=== PATIENT | male | born 1965 | race Caucasian/White ===

== ENCOUNTER 2016-04-26 11:29 | Emergency (ER) | payer SELFPAY ==
--- NOTE | 2016-04-26 11:39 | ED Physician Documentation ---
Low Back Pain - HISTORIAN Historian: patient - HPI Chief Complaint: Low Back Pain/ Injury History: history of chronic pain:, back pain Onset: other (February 2016) Duration: continues in ED Recent Injury: No Context: lifting Where: home Severity: moderate Worsened By:: movement to LT flexion. denies: movement to RT flexion Relieved By: nothing Further Comments: yes (50 year old male patient presents with low back pain radiating down left leg. Patient states he was seen in February for similar complaints, states he does not want the same medications.) - ROS CONST: no problems CVS/RESP: none EYES/ENT: none MS/SKIN/LYMPH: none Neuro/Psych: none GI/: denies: abdominal pain, black stools - PAST HX Past History: back pain Surgeries/Procedures: none Immunizations: UTD Allergies/Adverse Reactions: Allergies Allergy/AdvReac Type Severity Reaction Status Date / Time No Known Drug Allergies Allergy Unverified 04/05/13 09:26 Penicillins Allergy Verified 04/26/16 11:39 Home Medications: Ambulatory Orders Medication Instructions Recorded Baclofen [Lioresal] 10 mg PO TID PRN #30 tablet 04/26/16 Prednisone 40 mg PO DAILY #16 tablet 04/26/16 - SOCIAL HX Smoking History: cigarettes - FAMILY HX Family History: denies: none - VITAL SIGNS Vital Signs: Vital Signs Temp Pulse Resp BP Pulse Ox 97.3 F L 78 18 111/91 99 04/26/16 11:30 04/26/16 12:00 04/26/16 12:00 04/26/16 12:00 04/26/16 12:00 - REVIEWED ASSESSMENTS Nursing Assessment Reviewed: Yes Vitals Reviewed: Yes Progress - Progress Progress: Reviewed old records At discharge patient requested medication on $4 list. States he cannot afford the $33 toradol. Changed to prednisone, patient did not want Naproxen again. ED Results Lab/Radiology - Orders Orders: ED Orders Category Date Time Status Ketorolac Tromethamine [Toradol] Med 04/26/16 11:45 Discontinued 60 mg IM NOW ONE Low Back Pain/Injury - Physical Exam General Appearance: mild distress EENT: LIONEL Resp/CVS: chest non-tender, breath sounds nml, heart sounds nml, no resp. distress, lungs clear, reg. rate & rhythm Abdomen: non-tender, no organomegaly, no pulsatile mass Back: painless ROM, muscle spasm, other (negative right straight leg raise, positive left straight leg raise. ) Neuro/Psych: oriented x3, motor nml, sensation nml, bilat. 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
[2016-04-26 11:43] VITALS: BP 111/91
[2016-04-26] MEDS ORDERED: KETOROLAC TROMETHAMINE 60 MG/2 ML VIAL IM ONE (11:45)
== END 2016-04-26 12:00 ==
LOC: ED 11:29
DX: M54.42 Lumbago with sciatica, left side (principal)
CPT/HCPCS: 96372; 99283

== ENCOUNTER 2018-04-23 10:55 | Emergency (ER) | payer SELFPAY ==
[2018-04-23] MEDS ORDERED: methylPREDNISolone SOD SUCC 125 MG/2 ML VIAL IM ONE (11:21)
--- NOTE | 2018-04-23 11:26 | ED Physician Documentation ---
Low Back Pain - HISTORIAN Historian: patient - HPI Stated Complaint: low back pain Chief Complaint: Low Back Pain/ Injury Additional Information: Patient presents to ED with low back pain since he woke up this morning. He has chronic back pain. He denies any injury, no loss of bowel or bladder. History: history of chronic pain:, back pain Onset: hours (3) Duration: continues in ED Context: bending Where: home Other Injuries: denies: neck, head, back Severity: mild Quality: sharp, similar- prior back pain Associated Symptoms: denies: fever Worsened By:: upright position Relieved By: remaining still Further Comments: no - ROS CONST: denies: recent illness CVS/RESP: denies: chest pain, shortness of breath EYES/ENT: denies: problems with vision MS/SKIN/LYMPH: denies: calf pain Neuro/Psych: denies: headache GI/: denies: abdominal pain - PAST HX Past History: back pain Surgeries/Procedures: denies: back surgery Allergies/Adverse Reactions: Allergies Allergy/AdvReac Type Severity Reaction Status Date / Time No Known Drug Allergies Allergy Unverified 04/05/13 09:26 Penicillins Allergy Verified 04/26/16 11:39 Home Medications: Ambulatory Orders Medication Instructions Recorded Baclofen 10 mg PO TID PRN #20 tablet 04/23/18 predniSONE [Deltasone] 20 mg PO DIRECTED #9 tablet 04/23/18 - SOCIAL HX Smoking History: cigarettes, greater than 1 pack/day Alcohol Use: none Drug Use: none - FAMILY HX Family History: none - VITAL SIGNS Vital Signs: Vital Signs Temp Pulse Resp BP Pulse Ox 111/91 04/26/16 12:00 - REVIEWED ASSESSMENTS Nursing Assessment Reviewed: Yes Vitals Reviewed: Yes ED Results Lab/Radiology - Orders Orders: ED Orders Category Date Time Status methylPREDNISolone SOD SUCC [Solu-MEDROL] Med 04/23/18 11:21 Discontinued 125 mg IM NOW ONE Low Back Pain/Injury - Physical Exam General Appearance: no acute distress, alert EENT: LIONEL Neck: non-tender, painless ROM Resp/CVS: chest non-tender, breath sounds nml Abdomen: non-tender, no organomegaly Back: non-tender, muscle spasm (bilateral low back). No: vertebral point- tendernes Straight Leg Raising: Negative Left, Negative Right Neuro/Psych: oriented x3, motor nml, sensation nml Skin: warm/dry Extremities: non-tender, no edema Discharge Clincal Impression: Chronic low back pain without sciatica Qualifiers: Back pain laterality: bilateral Qualified Code(s): M54.5 - Low back pain; G89.29 - Other chronic pain Prescriptions: Baclofen 10 mg PO TID PRN #20 tablet PRN Reason: muscle spasm predniSONE [Deltasone] 20 mg PO DIRECTED #9 tablet Referrals: Primary Doctor,No [Primary Care Provider] - 2 Days Additional Instructions: 1. Tylenol and/or Ibuprofen as needed for pain 2. Take Baclofen as needed for muscle spasm. No driving or heavy machine operation while on this medication 3. Apply ice to affected area as needed for comfort 4. Follow up with PCP within 1 week 5. Return to ER for new or worsening symptoms. Condition: Stable Disposition: 01 HOME, SELF-CARE Decision to Admit: NO Date of Decison to Admit: 04/23/18 Decision Time: 11:30
[2018-04-23 12:05] VITALS: BP 126/79
== END 2018-04-23 11:48 | disposition home or self-care (01) ==
LOC: ED 10:55
DX: M54.5 Low back pain (principal); G89.29 Other chronic pain
CPT/HCPCS: 96372; 99283; J2930